=== PATIENT | female | born 1935 | race Caucasian/White ===

== ENCOUNTER 2022-06-12 12:57 | Emergency (ER) | payer MEDICARE ==
[~2022-06-12] VITALS: Ht 157.5 cm; Wt 61.0 kg
[~2022-06-12 12:57] MED LIST: ASPI-920 PO; ATEN-169 PO; ATOR20TA PO; CALC-1099 PO; CHOL100046 PO; TRIA1CAP2 PO; VITA-336 PO; VITC500T PO
[2022-06-12 13:08] VITALS: BP 161/74
[2022-06-12] MEDS ORDERED: TRAM50TA2 PO (17:30)
== END 2022-06-12 17:48 | disposition home or self-care (01) ==
LOC: ER 12:58
DX: S32.010A Wedge compression fracture of first lumbar vertebra, initial encounter for closed fracture (principal); E78.00 Pure hypercholesterolemia, unspecified; I10 Essential (primary) hypertension; Z88.0 Allergy status to penicillin; Z79.82 Long term (current) use of aspirin; Z79.899 Other long term (current) drug therapy; W19.XXXA Unspecified fall, initial encounter; Y93.89 Activity, other specified; Y92.89 Other specified places as the place of occurrence of the external cause; Y99.8 Other external cause status
CPT/HCPCS: 29799; 72131; 99284